=== PATIENT | male | born 1970 | race Caucasian/White ===

== ENCOUNTER 2016-11-05 08:23 | Day surgery (SDC) | payer BC ==
[2016-11-04 11:40] LABS: HEMATOCRIT 42.8 % (37.9-51.0); HGB HCT DIFFERENCE 2.2; MEAN CORPUSCULAR HEMOGLOBIN 28.9 pg (27.0-33.4); MEAN CORPUSCULAR VOLUME 83 fl (80-97); RED BLOOD COUNT 5.18 10^6/uL (4.35-5.55); RED CELL DISTRIBUTION WIDTH 15.2 % (11.5-14.0); WHITE BLOOD COUNT 5.8 10^3/uL (4.0-10.5)
--- NOTE | 2016-11-04 11:40 | RADIOLOGY REPORT (SQ) ---
EXAM DESCRIPTION: CHEST PA/LATERAL COMPLETED DATE/TIME: 11/04/2016 11:26 am REASON FOR STUDY: PRE-OP COMPARISON: None. NUMBER OF VIEWS: Two view. TECHNIQUE: Frontal and lateral radiographic views of the chest acquired. LIMITATIONS: None. FINDINGS: LUNGS AND PLEURA: Numerous nodular densities bilaterally. Largest approximate 2 cm left lung base. Metastatic disease should be considered. MEDIASTINUM AND HILAR STRUCTURES: No masses or contour abnormalities. HEART AND VASCULATURE: Heart normal size. No evidence for failure. BONY STRUCTURES: No acute findings. HARDWARE: None. OTHER: No other significant finding. IMPRESSION: Multiple nodular densities bilaterally most likely secondary to metastatic disease. Dr. Trevino will be notified. TECHNICAL DOCUMENTATION: JOB ID: [id number] [employer]- All Rights Reserved
[2016-11-04 12:04] LABS: ANION GAP 10 (5-19); BLOOD UREA NITROGEN 14 mg/dL (7-20); CALCIUM 10.2 mg/dL (8.4-10.2); CARBON DIOXIDE 28 mmol/L (22-30); CHLORIDE 105 mmol/L (98-107); CREATININE RESULT 1.09 mg/dL (0.52-1.25); GLUCOSE 97 mg/dL (75-110); POTASSIUM 4.2 mmol/L (3.6-5.0); SODIUM 143.3 mmol/L (137-145)
--- NOTE | 2016-11-04 21:02 | EKG REPORT ---
SEVERITY:- NORMAL ECG - SINUS RHYTHM : Confirmed by: Graeme Marc 04-Nov-2016 21:02:09
[~2016-11-05 08:23] MED LIST: ACETAMINOPHEN 325 MG TABLET PO PRN; CEFAZOLIN 1 GM/D5W RTU 1 GM/50 ML RTUPB IV PRN; LACTATED RINGERS 1000 ML IV PRN; LIDOCAINE 0.5% INJ-PF (5 MG/ML) 50 ML SDV SUBCUT PRN
[2016-11-05] MEDS ORDERED: LIDOCAINE 2%/EPINEPHRINE INJ 20 ML VIAL ONE (09:00)
[2016-11-05] MEDS ORDERED: FENTANYL CITRATE INJ/PF 100 MCG/2 ML AMPUL ONE (09:07)
[2016-11-05] MEDS ORDERED: PROPOFOL INJ 200 MG/20 ML VIAL IV ONE (09:07)
[2016-11-05] MEDS ORDERED: MIDAZOLAM 2 MG/2 ML INJ ONE (09:07)
[2016-11-05] MEDS ORDERED: ONDANSETRON HCL INJ/PF 4 MG/2 ML SDV IV PRN ×2 (11:25→11:42)
[2016-11-05] MEDS ORDERED: DIPHENHYDRAMINE HCL 50 MG/ML VIAL IV PRN (11:25)
[2016-11-05] MEDS ORDERED: FENTANYL CITRATE INJ/PF 100 MCG/2 ML AMPUL IV PRN ×3 (11:25)
--- NOTE | 2016-11-05 11:36 | Operative Report ---
Operative Report DATE OF SURGERY: 11/05/16 PREOPERATIVE DIAGNOSIS: Metastatic undifferentiated pleomorphic sarcoma POSTOPERATIVE DIAGNOSIS: same OPERATION: 1. Ultrasound directed insertion of right internal jugular vein single-lumen subclavian port site. 2. Interpretation of intraoperative fluoroscopy. SURGEON: ILDEFONSO KRISHNAN PROVIDER SCRIBE: SHAHNAZ MULLEN ANESTHESIA: LMAC TISSUE REMOVED OR ALTERED: none COMPLICATIONS: none ESTIMATED BLOOD LOSS: scant INTRAOPERATIVE FINDINGS: see below PROCEDURE: Patient was taken to the preop holding area the main operating room where LMAC anesthesia was induced. The patient's arch were placed supine position. The right neck and chest wall prepped draped sterile fashion. Surgical plan and surgical timeout were conducted. The right internal jugular vein was scanned with a variable frequency linear transducer. Findings were significant for patent, compressible right internal jugular vein. The skin was anesthetized 1% lidocaine plain. Micro needle and wire threaded into the right internal jugular vein using ultrasound guidance. A suitable placement location for the port was chosen in the right subclavian position. Skin was any stopped 1% lidocaine plain. 3 cm incision was made in the skin in the subclavicular position. Subcutaneous pocket large enough to accommodate a single-chamber port was created. This was achieved with electrocautery. The single lumen catheter was then turned to the appropriate length, tunneled between the 2 wounds, attached to the single-chamber port with plastic ring. Under fluoroscopic guidance, the micro wire was switched over to a conventional 0.030 wire the micro-introducer sheath. Now under fluoroscopic guidance, the conventional 9 [place] dilator and introducer were threaded over the wire. Dilator and wire removed, single lumen catheter threaded into the strip away sheath was stripped away sheath removed leaving the catheter in good position with the tip in the right atrium. There is no evidence of ectopy. There was no kinking of the catheter at the neck. The chamber was aspirated and flushed with dilute heparin. Wounds were closed with 3-0 Vicryl benzoin Steri-Strips. Portable upright chest x-ray pending time dictation. WILL Briones assisted with skin retraction and wound closure.
--- NOTE | 2016-11-05 11:41 | PDOC DISCHARGE SUMMARY ---
Discharge Summary (SDC) - Discharge Final Diagnosis: pleomorphic sarcoma Date of Surgery: 11/05/16 Discharge Date: 11/05/16 Condition: Stable Treatment or Instructions: You may shower in 48 hours. Leave paper bandaids (steri strips) intact until follow up appointment in 10-14 days. Do not scrub area. Allow warm water and soap to wash over area, pat dry, cover if needed. Call clinic with any questions or concerns. Call if area becomes red, swollen, tender, bleeding, swelling in your neck, or difficulty breathing. Follow up with Emily Jackson PA-C in 10-14 days at [facility] [phone] Referrals: MARLEEN FLORES DO [Primary Care Provider] - Discharge Diet: As Tolerated Discharge Activity: Activity As Tolerated Report the Following to Your Physician Immediately: Shortness of Breath, Increase in Pain, Fever over 101 Degrees, Unusual Bleeding, Swelling, Drainage- Foul Smelling
[2016-11-05] MEDS ORDERED: ONDANSETRON HCL INJ/PF 4 MG/2 ML SDV ONE (12:05)
[2016-11-05] MEDS ORDERED: LIDOCAINE 2% INJ-PF (20 MG/ML) 10 ML AMPUL ONE (12:05)
--- NOTE | 2016-11-05 12:21 | RADIOLOGY REPORT (SQ) ---
EXAM DESCRIPTION: CHEST SINGLE VIEW COMPLETED DATE/TIME: 11/05/2016 12:08 pm REASON FOR STUDY: port placement COMPARISON: Two-view chest 11/04/2016 EXAM PARAMETERS: NUMBER OF VIEWS: One view. TECHNIQUE: Single frontal radiographic view of the chest acquired. RADIATION DOSE: NA LIMITATIONS: None. FINDINGS: LUNGS AND PLEURA: Multiple lung parenchymal nodules are present for metastatic sarcoma. No acute infiltrates. No pleural effusion. No pneumothorax. MEDIASTINUM AND HILAR STRUCTURES: No masses. Contour normal. HEART AND VASCULAR STRUCTURES: Stable mild cardiomegaly BONES: No acute findings. HARDWARE: Right-sided permanent central line tip in the superior vena cava. OTHER: No other significant finding. IMPRESSION: Right-sided central line tip superior vena cava. No pneumothorax. Pulmonary nodules from metastatic sarcoma. TECHNICAL DOCUMENTATION: JOB ID: [id number]
[2016-11-05 13:48] VITALS: BP 125/78
--- NOTE | 2016-11-05 15:10 | RADIOLOGY REPORT (SQ) ---
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 TECHNIQUE: Intra procedural imaging and fluoro LIMITATIONS: None. PROCEDURE: Intra procedural imaging and fluoro during placement of a right-sided permanent central l ine in the OR. Please see the operative report for further details IMPRESSION: Intra procedural imaging and fluoro COMMENT: Quality ID [id number]: Final reports for procedures using fluoroscopy that document radiation exp osure indices, or exposure time and number of fluorographic images (if radiation exposure indices are not available) TECHNICAL DOCUMENTATION: JOB ID: [id number] [employer]- All Rights Reserved
== END 2016-11-05 13:15 | disposition home or self-care (01) ==
LOC: OROUT 08:23
PROVIDERS: ATTEND Surgery
PROC: 05H533Z Insertion of Infusion Device into Right Subclavian Vein, Percutaneous Approach (ICD-10-PCS; principal; 2016-11-05 10:30)
DX: C40.02 Malignant neoplasm of scapula and long bones of left upper limb (principal); G90.2 Horner's syndrome; D17.9 Benign lipomatous neoplasm, unspecified; I10 Essential (primary) hypertension; Z79.899 Other long term (current) drug therapy; Z79.82 Long term (current) use of aspirin
CPT/HCPCS: 36561; 93005; 36415; 85027; 80048; 71020; 71010; 77001; 93010; C1752; C1788; J2250; J0690; J3010; J3490 ×2; J2405; J2704; J1642; 532

== ENCOUNTER → 2016-11-06 | Outpatient (CLI) | payer BC ==
--- NOTE | 2016-11-06 19:38 | XCELERA REPORT ---
[address] [address] Transthoracic Echocardiogram Report Name: ALLIE ISLAS JR Age: 45 yrs Gender: Male : 1970 Patient Status: Outpatient Patient Location: Study Date: 11/06/2016 10:49 AM Height: 72 in Weight: 325 lb BSA: 2.6 m2 Procedure: A complete two-dimensional transthoracic echocardiogram was performed (2D, M-mode, spectral and color flow Doppler). The study was technically difficult with many images being suboptimal in quality. Reason For Study: ANTINEOPLASTIC CHEMOTHERAPY Ordering Physician: KOLE DICKINSON Performed By: Grecia Harper Interpretation Summary The left ventricular ejection fraction is normal. Doppler measurements suggest impaired left ventricular relaxation, which is associated with grade I/IV or mild diastolic dysfunction The left ventricle is grossly normal size. Wall motion cannot be accurately commented on, but no definite regional wall motion abnormalities noted. The right ventricular systolic function is normal. The right atrium is normal in size The left atrium is mildly dilated. There is a trace amount of mitral regurgitation There is no mitral valve stenosis. No aortic regurgitation is present. There is no aortic valve stenosis The aortic root is not well visualized but is probably normal size. The inferior vena cava was not well visualized There is no pericardial effusion. MMode/2D Measurements & Calculations RVDd: 4.4 cm LVIDd: 5.3 cm FS: 35.5 % Ao root diam: 3.6 cm IVSd: 1.1 cm LVIDs: 3.4 cm EDV(Teich): 138.1 ml LVPWd: 1.1 cm ESV(Teich): 49.0 ml Ao root area: 10.2 cm2 EF(Teich): 64.5 % Doppler Measurements & Calculations MV E max olga: MV dec slope: Ao V2 max: LV V1 max P.4 cm/sec 103.0 cm/sec 2.2 mmHg MV A max olga: 172.1 cm/sec2 Ao max PG: LV V1 max: 51.4 cm/sec MV dec time: 4.2 mmHg 73.8 cm/sec MV E/A: 0.77 0.23 sec PA V2 max: PI end-d olga: 91.0 cm/sec 119.8 cm/sec PA max P.3 mmHg Left Ventricle The left ventricle is grossly normal size. There is borderline concentric left ventricular hypertrophy. The left ventricular ejection fraction is normal. Doppler measurements suggest impaired left ventricular relaxation, which is associated with grade I/IV or mild diastolic dysfunction. Wall motion cannot be accurately commented on, but no definite regional wall motion abnormalities noted. Right Ventricle The right ventricle is grossly normal size. There is normal right ventricular wall thickness. The right ventricular systolic function is normal. Atria The right atrium is normal in size. The left atrium is mildly dilated. Interarterial septum not well visualized and not well dopplered. Cannot comment on ASD/PFO presence. Mitral Valve The mitral valve is grossly normal. There is no mitral valve stenosis. There is a trace amount of mitral regurgitation. Aortic Valve The aortic valve is grossly normal. There is no aortic valve stenosis. No aortic regurgitation is present. Tricuspid Valve The tricuspid valve is not well visualized, but is grossly normal. There is no tricuspid stenosis. There is a trace or physiologic amount of tricuspid regurgitation. Right ventricular systolic pressure is at the upper limits of normal. Pulmonic Valve The pulmonic valve is not well visualized. Great Vessels The aortic root is not well visualized but is probably normal size. The inferior vena cava was not well visualized. Effusions There is no pericardial effusion. : KOLE DICKINSON > Graeme Marc
== END ==
LOC: SP 10:35
PROVIDERS: ATTEND Internal Medicine
DX: Z51.11 Encounter for antineoplastic chemotherapy (principal)
CPT/HCPCS: 93306

== ENCOUNTER 2016-11-19 08:36 | Outpatient (CLI) | payer BC ==
[~2016-11-19 08:36] MED LIST changes: -ACETAMINOPHEN 325 MG TABLET PO PRN; -CEFAZOLIN 1 GM/D5W RTU 1 GM/50 ML RTUPB IV PRN; +DEXAMETHASONE SOD PHOSPHATE 10 MG in NORMAL SALINE 50 ML IV PRN; +DIPHENHYDRAMINE HCL 50 MG in NORMAL SALINE 50 ML IV PRN; -LACTATED RINGERS 1000 ML IV PRN; -LIDOCAINE 0.5% INJ-PF (5 MG/ML) 50 ML SDV SUBCUT PRN; +NORMAL SALINE 250 ML IV PRN; +[UNRECOGNIZED DRUG - MIXTURE] IV PRN
[2016-11-19 09:21] VITALS: BP 138/52
== END 2016-11-19 12:38 | disposition home or self-care (01) ==
LOC: II 08:36 → 4W 08:46 → II 12:38
PROVIDERS: ATTEND Internal Medicine
PROC: 3E0430M Introduction of Antineoplastic, Monoclonal Antibody, into Central Vein, Percutaneous Approach (ICD-10-PCS; principal; 2016-11-19)
PROC: 3E0433Z Introduction of Anti-inflammatory into Central Vein, Percutaneous Approach (ICD-10-PCS; 2016-11-19)
PROC: 3E043GC Introduction of Other Therapeutic Substance into Central Vein, Percutaneous Approach (ICD-10-PCS; 2016-11-19)
DX: Z51.11 Encounter for antineoplastic chemotherapy (principal); C40.02 Malignant neoplasm of scapula and long bones of left upper limb; R91.8 Other nonspecific abnormal finding of lung field; Z92.3 Personal history of irradiation; Z79.899 Other long term (current) drug therapy; Z79.82 Long term (current) use of aspirin; Z98.890 Other specified postprocedural states
CPT/HCPCS: 96413; 96375; J1200; J3490; J7050; J1100; C9485; 96374

== ENCOUNTER 2016-12-03 08:34 | Outpatient (CLI) | payer BC ==
[~2016-12-03 08:34] MED LIST changes: -DEXAMETHASONE SOD PHOSPHATE 10 MG in NORMAL SALINE 50 ML IV PRN; -DIPHENHYDRAMINE HCL 50 MG in NORMAL SALINE 50 ML IV PRN; +DOXORUBICIN HCL IV PRN; +FOSAPREPITANT DIMEGLUMINE 150 MG in NORMAL SALINE 150 ML IV PRN; +NORMAL SALINE IV PRN; +ONDANSETRON HCL/PF 16 MG, DEXAMETHASONE SOD PHOSPHATE 10 MG in NORMAL SALINE 50 ML IV PRN
[2016-12-03 09:16] LABS: HEMATOCRIT 36.1 % (37.9-51.0); HEMOGLOBIN 12.8 g/dL (13.5-17.0); HGB HCT DIFFERENCE 2.3; MEAN CORPUSCULAR HGB CONC 35.5 g/dL (32.0-36.0); MEAN CORPUSCULAR VOLUME 82 fl (80-97); RED BLOOD COUNT 4.42 10^6/uL (4.35-5.55); RED CELL DISTRIBUTION WIDTH 14.5 % (11.5-14.0); WHITE BLOOD COUNT 5.7 10^3/uL (4.0-10.5)
[2016-12-03 09:28] LABS: ALANINE AMINOTRANSFERASE 56 U/L (21-72); ALBUMIN 3.8 g/dL (3.5-5.0); ALKALINE PHOSPHATASE 71 U/L (38-126); ANION GAP 10 (5-19); ASPARTATE AMINO TRANSFERASE 25 U/L (17-59); BILIRUBIN,DIRECT 0.3 mg/dL (0.0-0.4); BILIRUBIN,TOTAL 0.4 mg/dL (0.2-1.3); BLOOD UREA NITROGEN 12 mg/dL (7-20); CALCIUM 9.7 mg/dL (8.4-10.2); CARBON DIOXIDE 26 mmol/L (22-30); CHLORIDE 106 mmol/L (98-107); GLUCOSE 138 mg/dL (75-110); POTASSIUM 3.9 mmol/L (3.6-5.0); SODIUM 141.9 mmol/L (137-145); TOTAL PROTEIN 6.5 g/dL (6.3-8.2)
[2016-12-03 09:39] LABS: BAND NEUTROPHILS % (MANUAL) 3 % (3-5); BASOPHILS % (MANUAL) 0 % (0-2); EOSINOPHILS % (MANUAL) 0 % (0-6); LYMPHOCYTES % (MANUAL) 11 % (13-45); TOTAL CELLS COUNTED 100
[2016-12-03 09:40] LABS: ANISOCYTOSIS SLIGHT; POLYCHROMASIA SLIGHT
[2016-12-03] MEDS ORDERED: DOXORUBICIN HCL IV PRN (09:43)
[2016-12-03] MEDS ORDERED: NORMAL SALINE IV PRN (09:43)
[2016-12-03] MEDS ORDERED: CONTAINER EMPTY IV PRN (09:43)
[2016-12-03 10:35] VITALS: BP 131/56
== END 2016-12-03 12:30 | disposition home or self-care (01) ==
LOC: II 08:34 → 5TH 08:36 → II 12:30
PROVIDERS: ATTEND Internal Medicine
PROC: 3E0430M Introduction of Antineoplastic, Monoclonal Antibody, into Central Vein, Percutaneous Approach (ICD-10-PCS; principal; 2016-12-03)
PROC: 3E04305 Introduction of Other Antineoplastic into Central Vein, Percutaneous Approach (ICD-10-PCS; 2016-12-03)
PROC: 3E043GC Introduction of Other Therapeutic Substance into Central Vein, Percutaneous Approach (ICD-10-PCS; 2016-12-03)
DX: Z51.11 Encounter for antineoplastic chemotherapy (principal); C40.02 Malignant neoplasm of scapula and long bones of left upper limb
CPT/HCPCS: 96413; 96415; 96366; 96360; 96523; 36415; 85025; 80053; J9000; J3490; J2405; J1100; J1453; C9485; 96361; 96375; 96417

== ENCOUNTER 2016-12-10 08:33 | Outpatient (CLI) | payer BC ==
[~2016-12-10 08:33] MED LIST changes: +DEXAMETHASONE SOD PHOSPHATE 10 MG in NORMAL SALINE 50 ML IV PRN; +DIPHENHYDRAMINE HCL 50 MG in NORMAL SALINE 50 ML IV PRN; -DOXORUBICIN HCL IV PRN; -FOSAPREPITANT DIMEGLUMINE 150 MG in NORMAL SALINE 150 ML IV PRN; -NORMAL SALINE IV PRN; -ONDANSETRON HCL/PF 16 MG, DEXAMETHASONE SOD PHOSPHATE 10 MG in NORMAL SALINE 50 ML IV PRN; +[UNRECOGNIZED DRUG - MIXTURE] IV PRN; -[UNRECOGNIZED DRUG - MIXTURE] IV PRN
[2016-12-10 09:09] LABS: ABSOLUTE BASOPHILS # (AUTO) 0.1 10^3/uL (0.0-0.2); ABSOLUTE LYMPHOCYTES (AUTO) 0.5 10^3/uL (0.5-4.7); ABSOLUTE NEUT (AUTO) 3.6 10^3/uL (1.7-8.2); BASOPHILS % (AUTO) 1.3 % (0-2); EOSINOPHILS % (AUTO) 0.4 % (0-6); HEMATOCRIT 34.4 % (37.9-51.0); HEMOGLOBIN 12.2 g/dL (13.5-17.0); HGB HCT DIFFERENCE 2.2; LYMPHOCYTES % (AUTO) 12.6 % (13-45); MEAN CORPUSCULAR HEMOGLOBIN 28.8 pg (27.0-33.4); MEAN CORPUSCULAR HGB CONC 35.6 g/dL (32.0-36.0); MEAN CORPUSCULAR VOLUME 81 fl (80-97); MONOCYTES % (AUTO) 0.9 % (3-13); RED BLOOD COUNT 4.25 10^6/uL (4.35-5.55); RED CELL DISTRIBUTION WIDTH 14.6 % (11.5-14.0); SEGMENTED NEUTROPHILS % (AUTO) 84.8 % (42-78); WHITE BLOOD COUNT 4.3 10^3/uL (4.0-10.5)
[2016-12-10 09:28] LABS: ALANINE AMINOTRANSFERASE 40 U/L (21-72); ALBUMIN 3.9 g/dL (3.5-5.0); ALKALINE PHOSPHATASE 67 U/L (38-126); ANION GAP 12 (5-19); ASPARTATE AMINO TRANSFERASE 19 U/L (17-59); BILIRUBIN,DIRECT 0.3 mg/dL (0.0-0.4); BILIRUBIN,TOTAL 0.9 mg/dL (0.2-1.3); BLOOD UREA NITROGEN 13 mg/dL (7-20); CALCIUM 9.6 mg/dL (8.4-10.2); CARBON DIOXIDE 25 mmol/L (22-30); CHLORIDE 103 mmol/L (98-107); CREATININE RESULT 0.83 mg/dL (0.52-1.25); GLUCOSE 129 mg/dL (75-110); POTASSIUM 3.9 mmol/L (3.6-5.0); SODIUM 139.7 mmol/L (137-145); TOTAL PROTEIN 6.7 g/dL (6.3-8.2)
[2016-12-10 10:17] VITALS: BP 130/84
== END 2016-12-10 11:42 | disposition home or self-care (01) ==
LOC: 5TH 08:33 → II 08:33
PROVIDERS: ATTEND Internal Medicine
PROC: 3E0430M Introduction of Antineoplastic, Monoclonal Antibody, into Central Vein, Percutaneous Approach (ICD-10-PCS; principal; 2016-12-10)
PROC: 3E043GC Introduction of Other Therapeutic Substance into Central Vein, Percutaneous Approach (ICD-10-PCS; 2016-12-10)
PROC: 3E0433Z Introduction of Anti-inflammatory into Central Vein, Percutaneous Approach (ICD-10-PCS; 2016-12-10)
DX: Z51.11 Encounter for antineoplastic chemotherapy (principal); C40.02 Malignant neoplasm of scapula and long bones of left upper limb
CPT/HCPCS: 96413; 96367; 96375; 36415; 85025; 80053; J1200; J3490; J1100; C9485 ×2; 96366; 96523

== ENCOUNTER 2016-12-24 08:42 | Outpatient (CLI) | payer BC ==
[~2016-12-24 08:42] MED LIST changes: +CONTAINER EMPTY IV PRN; -DEXAMETHASONE SOD PHOSPHATE 10 MG in NORMAL SALINE 50 ML IV PRN; -DIPHENHYDRAMINE HCL 50 MG in NORMAL SALINE 50 ML IV PRN; +DOXORUBICIN HCL IV PRN; +FOSAPREPITANT DIMEGLUMINE 150 MG in NORMAL SALINE 150 ML IV PRN; +NORMAL SALINE IV PRN; +ONDANSETRON HCL/PF 16 MG, DEXAMETHASONE SOD PHOSPHATE 10 MG in NORMAL SALINE 50 ML IV PRN; +SODIUM CHLORIDE IV PRN; +[UNRECOGNIZED DRUG - MIXTURE] IV PRN; -[UNRECOGNIZED DRUG - MIXTURE] IV PRN
[2016-12-24 09:42] LABS: HEMATOCRIT 35.3 % (37.9-51.0); HEMOGLOBIN 12.2 g/dL (13.5-17.0); HGB HCT DIFFERENCE 1.3; MEAN CORPUSCULAR HEMOGLOBIN 28.7 pg (27.0-33.4); MEAN CORPUSCULAR HGB CONC 34.5 g/dL (32.0-36.0); MEAN CORPUSCULAR VOLUME 83 fl (80-97); RED BLOOD COUNT 4.24 10^6/uL (4.35-5.55); RED CELL DISTRIBUTION WIDTH 17.4 % (11.5-14.0); WHITE BLOOD COUNT 4.3 10^3/uL (4.0-10.5)
[2016-12-24 09:56] LABS: ALANINE AMINOTRANSFERASE 72 U/L (21-72); ALBUMIN 4.4 g/dL (3.5-5.0); ALKALINE PHOSPHATASE 66 U/L (38-126); ANION GAP 12 (5-19); ASPARTATE AMINO TRANSFERASE 31 U/L (17-59); BILIRUBIN,DIRECT 0.4 mg/dL (0.0-0.4); BILIRUBIN,TOTAL 0.8 mg/dL (0.2-1.3); BLOOD UREA NITROGEN 15 mg/dL (7-20); CALCIUM 10.4 mg/dL (8.4-10.2); CARBON DIOXIDE 25 mmol/L (22-30); CHLORIDE 105 mmol/L (98-107); CREATININE RESULT 0.97 mg/dL (0.52-1.25); GLUCOSE 121 mg/dL (75-110); POTASSIUM 4.2 mmol/L (3.6-5.0); SODIUM 142.2 mmol/L (137-145); TOTAL PROTEIN 7.3 g/dL (6.3-8.2)
[2016-12-24 10:13] VITALS: BP 125/79
[2016-12-24 10:45] LABS: BASOPHILS % (MANUAL) 0 % (0-2); EOSINOPHILS % (MANUAL) 0 % (0-6); LYMPHOCYTES % (MANUAL) 29 % (13-45); TOTAL CELLS COUNTED 100
[2016-12-24 10:48] LABS: ANISOCYTOSIS 1+; POLYCHROMASIA SLIGHT; TOXIC GRANULATION 1+
[2016-12-24] MEDS ORDERED: DIPHENHYDRAMINE HCL 50 MG/ML VIAL IV ONE (12:30)
== END 2016-12-24 14:47 | disposition home or self-care (01) ==
LOC: II 08:42 → 5TH 08:43 → II 14:47
PROVIDERS: ATTEND Internal Medicine
PROC: 3E0430M Introduction of Antineoplastic, Monoclonal Antibody, into Central Vein, Percutaneous Approach (ICD-10-PCS; principal; 2016-12-24)
PROC: 3E04305 Introduction of Other Antineoplastic into Central Vein, Percutaneous Approach (ICD-10-PCS; 2016-12-24)
PROC: 3E043GC Introduction of Other Therapeutic Substance into Central Vein, Percutaneous Approach (ICD-10-PCS; 2016-12-24)
DX: Z51.11 Encounter for antineoplastic chemotherapy (principal); C40.02 Malignant neoplasm of scapula and long bones of left upper limb
CPT/HCPCS: 36415; 85025; 80053; 96413; 96415; 96367; 96375; J1200; J9000; J3490 ×2; J2405; J1100; J1453; C9485; 96417

== ENCOUNTER 2016-12-31 08:32 | Outpatient (CLI) | payer BC ==
[~2016-12-31 08:32] MED LIST changes: -CONTAINER EMPTY IV PRN; +DEXAMETHASONE SOD PHOSPHATE 10 MG in NORMAL SALINE 50 ML IV PRN; +DIPHENHYDRAMINE HCL 50 MG/ML VIAL IV PRN; -DOXORUBICIN HCL IV PRN; -FOSAPREPITANT DIMEGLUMINE 150 MG in NORMAL SALINE 150 ML IV PRN; -NORMAL SALINE IV PRN; -ONDANSETRON HCL/PF 16 MG, DEXAMETHASONE SOD PHOSPHATE 10 MG in NORMAL SALINE 50 ML IV PRN; -SODIUM CHLORIDE IV PRN
[2016-12-31 09:17] LABS: ABSOLUTE LYMPHOCYTES (AUTO) 0.5 10^3/uL (0.5-4.7); ABSOLUTE NEUT (AUTO) 3.6 10^3/uL (1.7-8.2); BASOPHILS % (AUTO) 1.2 % (0-2); EOSINOPHILS % (AUTO) 0.6 % (0-6); HEMATOCRIT 31.5 % (37.9-51.0); HEMOGLOBIN 11.4 g/dL (13.5-17.0); HGB HCT DIFFERENCE 2.7; LYMPHOCYTES % (AUTO) 11.2 % (13-45); MEAN CORPUSCULAR HEMOGLOBIN 29.5 pg (27.0-33.4); MEAN CORPUSCULAR HGB CONC 36.1 g/dL (32.0-36.0); MEAN CORPUSCULAR VOLUME 82 fl (80-97); MONOCYTES % (AUTO) 0.7 % (3-13); RED BLOOD COUNT 3.86 10^6/uL (4.35-5.55); RED CELL DISTRIBUTION WIDTH 16.3 % (11.5-14.0); SEGMENTED NEUTROPHILS % (AUTO) 86.3 % (42-78); WHITE BLOOD COUNT 4.2 10^3/uL (4.0-10.5)
[2016-12-31 09:57] VITALS: BP 136/82
== END 2016-12-31 12:17 | disposition home or self-care (01) ==
LOC: II 08:32 → 5TH 08:54 → II 12:17
PROVIDERS: ATTEND Internal Medicine
PROC: 3E0430M Introduction of Antineoplastic, Monoclonal Antibody, into Central Vein, Percutaneous Approach (ICD-10-PCS; principal; 2016-12-31)
PROC: 3E0433Z Introduction of Anti-inflammatory into Central Vein, Percutaneous Approach (ICD-10-PCS; 2016-12-31)
PROC: 3E043GC Introduction of Other Therapeutic Substance into Central Vein, Percutaneous Approach (ICD-10-PCS; 2016-12-31)
DX: Z51.11 Encounter for antineoplastic chemotherapy (principal); C40.02 Malignant neoplasm of scapula and long bones of left upper limb
CPT/HCPCS: 36415; 85025; 96413; 96365; 96374; 96360; 96523; J1200; J3490; J1100; C9485; 96361; 96375

== ENCOUNTER 2017-02-18 13:26 | Outpatient (CLI) | payer BC ==
[2017-02-18 14:16] VITALS: BP 131/93
== END 2017-02-18 14:57 | disposition home or self-care (01) ==
LOC: II 13:26 → 5TH 13:33 → II 14:57
PROVIDERS: ATTEND Internal Medicine
PROC: 3C1ZX8Z Irrigation of Indwelling Device using Irrigating Substance, External Approach (ICD-10-PCS; principal; 2017-02-18)
DX: Z76.89 Persons encountering health services in other specified circumstances (principal)
CPT/HCPCS: 96360; 96365; 96523

== ENCOUNTER 2017-03-10 13:35 | Outpatient (CLI) | payer BC ==
[2017-03-10 14:11] VITALS: BP 130/76
[2017-03-10] MEDS ORDERED: NORMAL SALINE 1000 ML 1,000 ML IV PRN (14:15)
== END 2017-03-10 15:00 | disposition home or self-care (01) ==
LOC: II 13:35 → 5TH 13:37 → II 15:00
PROVIDERS: ATTEND Internal Medicine
PROC: 3E0437Z Introduction of Electrolytic and Water Balance Substance into Central Vein, Percutaneous Approach (ICD-10-PCS; principal; 2017-03-10)
DX: E86.0 Dehydration (principal)
CPT/HCPCS: 96360; 96375

== ENCOUNTER 2017-04-08 10:40 | Outpatient (CLI) | payer BC ==
[~2017-04-08 10:40] MED LIST changes: -DIPHENHYDRAMINE HCL 50 MG/ML VIAL IV PRN; +GEMCITABINE HCL IV PRN; +NORMAL SALINE IV PRN; -[UNRECOGNIZED DRUG - MIXTURE] IV PRN
[2017-04-08 12:04] VITALS: BP 132/56
== END 2017-04-08 13:31 | disposition home or self-care (01) ==
LOC: II 10:40 → 5TH 10:43 → II 13:31
PROVIDERS: ATTEND Internal Medicine
PROC: 3E04305 Introduction of Other Antineoplastic into Central Vein, Percutaneous Approach (ICD-10-PCS; principal; 2017-04-08)
PROC: 3E0433Z Introduction of Anti-inflammatory into Central Vein, Percutaneous Approach (ICD-10-PCS; 2017-04-08)
DX: Z51.11 Encounter for antineoplastic chemotherapy (principal); C40.02 Malignant neoplasm of scapula and long bones of left upper limb
CPT/HCPCS: 96413; 96367; J7050; J9201 ×2; J1100

== ENCOUNTER 2017-04-15 07:50 | Outpatient (CLI) | payer BC ==
[~2017-04-15 07:50] MED LIST changes: +DEXAMETHASONE 4 MG TABLET PO PRN; -DEXAMETHASONE SOD PHOSPHATE 10 MG in NORMAL SALINE 50 ML IV PRN; +DIPHENHYDRAMINE HCL 50 MG/ML VIAL IV PRN; +DOCETAXEL IV PRN; +FAMOTIDINE/PF 20 MG in NORMAL SALINE 50 ML IV PRN; +PALONOSETRON 0.25 MG/5 ML SDV IV PRN
[2017-04-15 08:16] LABS: HEMATOCRIT 35.6 % (37.9-51.0); HEMOGLOBIN 12.1 g/dL (13.5-17.0); MEAN CORPUSCULAR HEMOGLOBIN 29.9 pg (27.0-33.4); MEAN CORPUSCULAR VOLUME 88 fl (80-97); PLATELET COUNT 182 10^3/uL (150-450); RED BLOOD COUNT 4.05 10^6/uL (4.35-5.55); RED CELL DISTRIBUTION WIDTH 19.4 % (11.5-14.0); WHITE BLOOD COUNT 7.2 10^3/uL (4.0-10.5)
[2017-04-15 08:35] LABS: ABSOLUTE LYMPHOCYTES# (MANUAL) 0.9 10^3/uL (0.5-4.7); ABSOLUTE MONOCYTES # (MANUAL) 0.8 10^3/uL (0.1-1.4); ABSOLUTE NEUTROPHILS# (MANUAL) 5.5 10^3/uL (1.7-8.2); BASOPHILS % (MANUAL) 0 % (0-2); EOSINOPHILS % (MANUAL) 0 % (0-6); LYMPHOCYTES % (MANUAL) 11 % (13-45); MONOCYTES % (MANUAL) 11 % (3-13); NUCLEATED RED BLOOD CELLS 1 /100 WBC (0); SEGMENTED NEUTROPHILS % (MAN) 77 % (42-78); TOTAL CELLS COUNTED 100
[2017-04-15 08:37] LABS: ANISOCYTOSIS 2+; PLATELET COMMENT ADEQUATE; POLYCHROMASIA SLIGHT; TOXIC GRANULATION 1+
[2017-04-15 08:43] VITALS: BP 134/92
== END 2017-04-15 11:47 | disposition home or self-care (01) ==
LOC: II 07:50 → 5TH 07:51 → II 11:47
PROVIDERS: ATTEND Internal Medicine
PROC: 3E04305 Introduction of Other Antineoplastic into Central Vein, Percutaneous Approach (ICD-10-PCS; principal; 2017-04-15)
PROC: 3E043GC Introduction of Other Therapeutic Substance into Central Vein, Percutaneous Approach (ICD-10-PCS; 2017-04-15)
DX: Z51.11 Encounter for antineoplastic chemotherapy (principal); C40.02 Malignant neoplasm of scapula and long bones of left upper limb
CPT/HCPCS: 36415; 85025; 96413; 96415; 96375; J1200; J7050; J9201 ×2; S0028; J2469; J9171; 96417

== ENCOUNTER → 2017-04-22 | Outpatient (CLI) | payer BC ==
[2017-04-22 17:16] LABS: A TYPE INFLUENZA AG NEGATIVE (NEGATIVE); B INFLUENZA AG NEGATIVE (NEGATIVE)
== END ==
LOC: OD 16:38
PROVIDERS: ATTEND Internal Medicine
DX: J11.1 Influenza due to unidentified influenza virus with other respiratory manifestations (principal)
CPT/HCPCS: 87804

== ENCOUNTER 2017-05-11 09:06 | Outpatient (CLI) | payer BC ==
[~2017-05-11 09:06] MED LIST changes: -DEXAMETHASONE 4 MG TABLET PO PRN; +DEXAMETHASONE SOD PHOSPHATE 10 MG in NORMAL SALINE 50 ML IV PRN; -DIPHENHYDRAMINE HCL 50 MG/ML VIAL IV PRN; -DOCETAXEL IV PRN; -FAMOTIDINE/PF 20 MG in NORMAL SALINE 50 ML IV PRN; -PALONOSETRON 0.25 MG/5 ML SDV IV PRN
[2017-05-11] MEDS ORDERED: NORMAL SALINE 1000 ML 1,000 ML IV PRN (09:43)
[2017-05-11 11:08] VITALS: BP 126/84
== END 2017-05-11 11:00 | disposition home or self-care (01) ==
LOC: II 09:06 → 2S 09:15 → II 11:00
PROVIDERS: ATTEND Internal Medicine
PROC: 3E0337Z Introduction of Electrolytic and Water Balance Substance into Peripheral Vein, Percutaneous Approach (ICD-10-PCS; principal; 2017-05-11)
DX: E86.0 Dehydration (principal); C40.02 Malignant neoplasm of scapula and long bones of left upper limb
CPT/HCPCS: 96360; J1100; J7030; J7050; J9201

== ENCOUNTER 2017-06-01 14:29 | Outpatient (CLI) | payer BC ==
[2017-06-01] MEDS ORDERED: NORMAL SALINE 1000 ML 1,000 ML IV PRN (15:06)
[2017-06-01 17:14] VITALS: BP 105/66
== END 2017-06-01 17:10 | disposition home or self-care (01) ==
LOC: II 14:29 → 2S 14:35 → II 17:10
PROVIDERS: ATTEND Internal Medicine
PROC: 3E0437Z Introduction of Electrolytic and Water Balance Substance into Central Vein, Percutaneous Approach (ICD-10-PCS; principal; 2017-06-01)
DX: E86.0 Dehydration (principal)
CPT/HCPCS: 96360

== ENCOUNTER 2017-06-03 13:02 | Outpatient (CLI) | payer BC ==
[2017-06-03] MEDS ORDERED: NORMAL SALINE 1000 ML 1,000 ML IV PRN (13:04)
[2017-06-03 14:01] VITALS: BP 128/74
== END 2017-06-03 14:54 | disposition home or self-care (01) ==
LOC: II 13:02 → 5TH 13:05 → II 14:54
PROVIDERS: ATTEND Internal Medicine
PROC: 3E0437Z Introduction of Electrolytic and Water Balance Substance into Central Vein, Percutaneous Approach (ICD-10-PCS; principal; 2017-06-03)
DX: E86.0 Dehydration (principal); C40.02 Malignant neoplasm of scapula and long bones of left upper limb
CPT/HCPCS: 96360

== ENCOUNTER → 2017-07-07 | Outpatient (CLI) | payer BC ==
--- NOTE | 2017-07-07 16:07 | RADIOLOGY REPORT (SQ) ---
EXAM DESCRIPTION: CT CHEST WITH COMPLETED DATE/TIME: 07/07/2017 3:05 pm REASON FOR STUDY: MAL NEOPLASM OF SCAPULA AND LONG BONES OF LEFT UPPER LIMB C40.02 MALIG NEOPLASM O F SCAPULA AND LONG BONES OF LEFT UPPE COMPARISON: Chest films 11/05/2016, 11/04/2016 TECHNIQUE: CT scan of the chest performed using helical scanning technique with dynamic intravenous contrast injection. Images reviewed with lung, soft tissue and bone windows. Reconstructed coronal and sagittal MPR images reviewed. All images stored on PACS. All CT scanners at this facility use dose modulation, iterative reconstruction, and/or weight based d osing when appropriate to reduce radiation dose to as low as reasonably achievable (ALARA). [facility]: Dose Right [facility]: CareDose [facility]: Dose Right [facility]: Teradose 4D [facility]: InteliWISE [place] CONTRAST TYPE AND DOSE: contrast/concentration: Isovue 370.00 mg/ml; Total Contrast Delivered: 80.0 ml; Total Saline Delivered: 55.0 ml RENAL FUNCTION: Creatinine 0.9 RADIATION DOSE: CT Rad equipment meets quality standard of care and radiation dose reduction techniq ues were employed. CTDIvol: 19.4 mGy. DLP: 765 mGy-cm. . LIMITATIONS: Truncated field of view, left axilla incompletely included in the field of view FINDINGS: LUNGS AND PLEURA: There are multiple lung parenchymal metastatic nodules. The largest is in the left lower lobe just above the left hemidiaphragm, 5.6 x 4.2 cm in size. The next largest is in the right upper lobe, 2 x 1.6 cm on axial image 22. These appear larger than on plain films from October 2016. No pleural effusions. No acute infiltrates. No pneumothorax. HILAR AND MEDIASTINAL STRUCTURES: Mediastinal lymph nodes are present as follows: 10 mm diameter pretracheal lymph node image 15 1.8 x 1.1 cm diameter precarinal lymph node image 21 2.3 x 1.2 cm sub- carinal lymph node image 27 HEART AND VASCULAR STRUCTURES: No aneurysm or dissection. No central pulmonary emboli. No pericardi al effusion. HARDWARE: None in the chest. UPPER ABDOMEN: Fatty liver Limited exam. THYROID AND OTHER SOFT TISSUES: Over the left posterior shoulder periscapular region, there is a soft tissue wound with gauze packing best shown on axial image 43 BONES: No significant finding. OTHER: No other significant finding. IMPRESSION: Lung metastatic nodules, appear larger in size than on prior plain films from October TECHNICAL DOCUMENTATION: JOB ID: [id number] Quality ID # [id number]: Final reports with documentation of one or more dose reduction techniques (e.g., Au tomated exposure control, adjustment of the mA and/or kV according to patient size, use of iterative reconstruction technique) 2010 [employer]- All Rights Reserved Reading location - IP/workstation name: [email or web address] [id number]
== END ==
LOC: RAD 14:29
PROVIDERS: ATTEND Internal Medicine
DX: C40.02 Malignant neoplasm of scapula and long bones of left upper limb (principal); C78.02 Secondary malignant neoplasm of left lung
CPT/HCPCS: 71260

== ENCOUNTER → 2017-08-13 | Outpatient (CLI) | payer BC ==
--- NOTE | 2017-08-13 10:08 | RADIOLOGY REPORT (SQ) ---
EXAM DESCRIPTION: CT CHEST WITH; CT ABD/PELVIS WITH IV ORAL COMPLETED DATE/TIME: 08/13/2017 9:11 am REASON FOR STUDY: MALIGNANT NEOPLASM OF SCAPULA AND LONG BONES OF LEFT UPPER LIMB (C40.02) C40.02 M ALIG NEOPLASM OF SCAPULA AND LONG BONES OF LEFT UPPE COMPARISON: Chest films 11/05/2016, 11/04/2016 CT chest 07/07/2016 CONTRAST TYPE AND DOSE: contrast/concentration: Isovue 370.00 mg/ml; Total Contrast Delivered: 100.0 ml; Total Saline Delivered: 72.0 ml RENAL FUNCTION: Creatinine 0.7 TECHNIQUE: CT scan of the chest performed using helical scanning technique with dynamic intravenous contrast injection. Images reviewed with lung, soft tissue and bone windows. Reconstructed coronal a nd sagittal MPR images reviewed. All images stored on PACS. CT scan of the abdomen and pelvis performed with intravenous and with oral contrastusing helical scan vicente technique with dynamic intravenous contrast injection. Images reviewed with lung, soft tissue a nd bone windows. Reconstructed coronal and sagittal MPR images reviewed. Delayed images for evaluat ion of the urinary system also acquired and evaluated. All images stored on PACS. All CT scanners at this facility use dose modulation, iterative reconstruction, and/or weight based d osing when appropriate to reduce radiation dose to as low as reasonably achievable (ALARA). [facility]: Dose Right [facility]: CareDose [facility]: Dose Right [facility]: Teradose 4D [facility]: [employer] RADIATION DOSE: CT Rad equipment meets quality standard of care and radiation dose reduction techniq ues were employed. CTDIvol: 26.7 - 29.7 mGy. DLP: 4869 mGy-cm. . LIMITATIONS: None. FINDINGS: CHEST: LUNGS AND PLEURA: Multiple lung parenchymal masses are present, larger than on prior scan 07/07/2017. Index lesions are as follows: 9 x 8 cm left lower lobe (was 5.6 x 4.2 cm on 07/07/2017). 2.5 x 2.4 cm right upper lobe (was 2 x 1.6 cm on 07/07/2017). No pleural effusions. No acute infiltrates. No pneumothorax. HILAR AND MEDIASTINAL STRUCTURES: Enlarged mediastinal lymph nodes are present as follows: 1.8 x 1.2 cm pretracheal lymph node image 17 (was 10 mm on 07/07/2017). 2.5 x 1.6 cm precarinal lymph node image 24 (was 1.8 x 1 cm on 07/07/2017). 3 x 1.8 cm sub- carinal lymph node image 30 (was 2.3 x 1.2 cm on 07/07/2017). HEART AND VASCULAR STRUCTURES: No aneurysm or dissection. No central pulmonary emboli. No pericardi al effusion. HARDWARE: Right jugular central line tip superior vena cava THYROID AND OTHER SOFT TISSUES: Postoperative and postradiation therapy change with a persistent woun d over the left posterior shoulder soft tissues 4 cm in diameter. BONES: No significant finding. OTHER: In the posterior mediastinum, between the esophagus and aorta, a 4 x 3 cm soft tissue mass is present on axial image 17. ABDOMEN AND PELVIS: LIVER: Normal size. No masses. No dilated ducts. SPLEEN: Normal size. No focal lesions. PANCREAS: No masses. No significant calcifications. No adjacent inflammation or peripancreatic fluid collections. Pancreatic duct not dilated. GALLBLADDER: No identified stones by CT criteria. No inflammatory changes to suggest cholecystitis. ADRENAL GLANDS: No significant masses or asymmetry. RIGHT KIDNEY AND URETER: No solid masses. No significant calcification. No hydronephrosis or hydroure ter. LEFT KIDNEY AND URETER: No solid masses. No significant calcification. No hydronephrosis or hydrouret er. AORTA AND VESSELS: No aneurysm. No dissection. Renal arteries, SMA, celiac without stenosis. RETROPERITONEUM: No retroperitoneal adenopathy, hemorrhage or masses. BOWEL AND PERITONEAL CAVITY: No masses or inflammatory changes. No free fluid or peritoneal masses. APPENDIX: Normal. ABDOMINAL WALL: No masses. No hernias. PELVIS: No mass or free fluid. Normal bladder. BONES: No significant or acute findings. OTHER: No other significant finding. IMPRESSION: Progression of disease in the chest, with increased size of lung metastatic lesions and increase in size of mediastinal lymph nodes. No CT evidence of metastatic disease to the abdomen or pelvis TECHNICAL DOCUMENTATION: JOB ID: [id number] Quality ID # [id number]: Final reports with documentation of one or more dose reduction techniques (e.g., Au tomated exposure control, adjustment of the mA and/or kV according to patient size, use of iterative reconstruction technique) 2010 [employer]- All Rights Reserved Reading location - IP/workstation name: [facility]
== END ==
LOC: RAD 08:11
PROVIDERS: ATTEND Internal Medicine
DX: C40.02 Malignant neoplasm of scapula and long bones of left upper limb (principal)
CPT/HCPCS: 71260; 74177

== ENCOUNTER → 2017-10-19 | Outpatient (CLI) | payer BC ==
--- NOTE | 2017-10-19 11:55 | RADIOLOGY REPORT (SQ) ---
EXAM DESCRIPTION: CT CHEST WITH; CT ABD/PELVIS WITH IV ORAL COMPLETED DATE/TIME: 10/19/2017 10:30 am REASON FOR STUDY: MALIG NEOPLASM OF SCAPULA AND LONG BONES OF LEFT UPPER LIMB C40.02 MALIG NEOPLASM OF SCAPULA AND LONG BONES OF LEFT UPPE COMPARISON: CT chest abdomen pelvis 08/13/2017 CT chest 07/07/2017 CONTRAST TYPE AND DOSE: contrast/concentration: Isovue 370.00 mg/ml; Total Contrast Delivered: 100.0 ml; Total Saline Delivered: 72.0 ml RENAL FUNCTION: Creatinine 0.9 TECHNIQUE: CT scan of the chest performed using helical scanning technique with dynamic intravenous contrast injection. Images reviewed with lung, soft tissue and bone windows. Reconstructed coronal a nd sagittal MPR images reviewed. All images stored on PACS. CT scan of the abdomen and pelvis performed with intravenous and with oral contrastusing helical scan vicente technique with dynamic intravenous contrast injection. Images reviewed with lung, soft tissue a nd bone windows. Reconstructed coronal and sagittal MPR images reviewed. Delayed images for evaluat ion of the urinary system also acquired and evaluated. All images stored on PACS. All CT scanners at this facility use dose modulation, iterative reconstruction, and/or weight based d osing when appropriate to reduce radiation dose to as low as reasonably achievable (ALARA). [facility]: Dose Right [facility]: CareDose [facility]: Dose Right [facility]: Teradose 4D [facility]: [employer] RADIATION DOSE: CT Rad equipment meets quality standard of care and radiation dose reduction techniq ues were employed. CTDIvol: 19.1 - 22.6 mGy. DLP: 4686 mGy-cm. . LIMITATIONS: None. FINDINGS: CHEST: LUNGS AND PLEURA: Increasing size of multiple pulmonary masses. Index lesions are as follows: Right apical lung mass 5 x 4 cm (was 2.5 x 2.4 cm on 08/13/2017). Medial right lung base nodule 7 x 6 cm in size (was 4 x 3 cm on 08/13/2017) Left lower lobe 10 x 9 cm mass (was 9 x 8 cm on 08/13/2017). There is now a trace right pleural effusion, new compared to previous studies. No left effusion. No pneumothorax. HILAR AND MEDIASTINAL STRUCTURES: Decrease in size of lymph nodes compared to 08/13/2017 as follows: Pretracheal 1.3 x 1 cm lymph node image 15 (was 1.8 x 1.2 cm 08/13/2017) Precarinal 1.8 x 1.1 cm lymph node image 22 (was 2.5 x 1.6 cm 08/13/2017). Sub- carinal 2 x 1 cm lymph node image 26 (was 3 x 1.8 cm on 08/13/2017). HEART AND VASCULAR STRUCTURES: No aneurysm or dissection. No central pulmonary emboli. No pericardi al effusion. HARDWARE: Right permanent central line tip superior vena cava THYROID AND OTHER SOFT TISSUES: 5 cm soft tissue defect over the left posterior upper chest at the le olga of the left scapular wing. This is unchanged. BONES: No significant finding. OTHER: No other significant finding. ABDOMEN AND PELVIS: LIVER: Diffuse fatty infiltration. No masses. Normal vascular enhancement. No biliary ductal dilat ation SPLEEN: Normal size. No focal lesions. PANCREAS: No masses. No significant calcifications. No adjacent inflammation or peripancreatic fluid collections. Pancreatic duct not dilated. GALLBLADDER: No identified stones by CT criteria. No inflammatory changes to suggest cholecystitis. ADRENAL GLANDS: No significant masses or asymmetry. RIGHT KIDNEY AND URETER: No solid masses. No significant calcification. No hydronephrosis or hydroure ter. LEFT KIDNEY AND URETER: No solid masses. No significant calcification. No hydronephrosis or hydrouret er. AORTA AND VESSELS: No aneurysm. No dissection. Renal arteries, SMA, celiac without stenosis. RETROPERITONEUM: No retroperitoneal adenopathy, hemorrhage or masses. BOWEL AND PERITONEAL CAVITY: No masses or inflammatory changes. No free fluid or peritoneal masses. APPENDIX: Normal. ABDOMINAL WALL: Small fatty bilateral inguinal hernias PELVIS: No mass or free fluid. Normal bladder. BONES: Multilevel degenerative disc changes lumbar spine OTHER: No other significant finding. IMPRESSION: Enlargement of lung parenchymal metastatic lesions compared to 08/13/2017. Decrease in size of mediastinal lymph nodes compared to 08/13/2017. No CT evidence of metastatic disease to the abdomen or pelvis TECHNICAL DOCUMENTATION: JOB ID: [id number] Quality ID # [id number]: Final reports with documentation of one or more dose reduction techniques (e.g., Au tomated exposure control, adjustment of the mA and/or kV according to patient size, use of iterative reconstruction technique) 2010 [employer]- All Rights Reserved Reading location - IP/workstation name: [facility]
== END ==
LOC: RAD 09:39
PROVIDERS: ATTEND Internal Medicine
DX: C40.02 Malignant neoplasm of scapula and long bones of left upper limb (principal)
CPT/HCPCS: 71260; 74177

== ENCOUNTER 2017-11-05 15:45 | Inpatient (IN) | payer BC ==
[~2017-11-05 15:45] MED LIST changes: -DEXAMETHASONE SOD PHOSPHATE 10 MG in NORMAL SALINE 50 ML IV PRN; +EPINEPHRINE INJ 1 MG/10 ML DISP.SYRIN ONE; -GEMCITABINE HCL IV PRN; -NORMAL SALINE 250 ML IV PRN; -NORMAL SALINE IV PRN; +SODIUM BICARBONATE 8.4% INJ 50 MEQ/50 ML DISP.SYRIN ONE
--- NOTE | 2017-11-05 16:31 | ER Document Report ---
ED General - General Stated Complaint: DIZZY Time Seen by Provider: 11/05/17 15:54 Mode of Arrival: Medic Information source: Patient, Relative Notes: This is a 46-year-old man brought in by EMS for dizziness, syncope. 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 Boyd. He reports having decreased p.o. intake for the past several days. The patient is accompanied by his who states he has not been able to ambulate because of generalized weakness for the past week. TRAVEL OUTSIDE OF THE [place] IN LAST 30 DAYS: No - HPI Onset: Last week Onset/Duration: Gradual Quality of pain: No pain, Dull Severity: None Pain Level: Denies Associated symptoms: Weakness. denies: Chest pain, Nonproductive cough, Productive cough, Fever, Shortness of breath Exacerbated by: Movement Relieved by: Remaining still Similar symptoms previously: Yes Recently seen / treated by doctor: Yes - Related Data Allergies/Adverse Reactions: No Known Allergies Allergy (Unverified 11/05/16 11:39) Past Medical History - General Information source: Patient - Social History Smoking Status: Never Smoker Cigarette use (# per day): No Chew tobacco use (# tins/day): No Frequency of alcohol use: None Drug Abuse: None Lives with: Family Family History: None Patient has suicidal ideation: No Patient has homicidal ideation: No - Past Medical History Cardiac Medical History: Reports: Hx Hypertension Denies: Hx Coronary Artery Disease, Hx Heart Attack Pulmonary Medical History: Denies: Hx Asthma, Hx Bronchitis, Hx COPD, Hx Pneumonia Neurological Medical History: Denies: Hx Cerebrovascular Accident, Hx Seizures Musculoskeletal Medical History: Denies Hx Arthritis Past Surgical History: Reports: Other - Sarcoma removal from back, port placement right chest wall - Immunizations Hx Diphtheria, Pertussis, Tetanus Vaccination: Yes Review of Systems - Review of Systems Constitutional: denies: Chills, Fever EENT: No symptoms reported Cardiovascular: See HPI, Dizziness, Lightheaded. denies: Chest pain Respiratory: denies: Cough, Hemoptysis, Wheezing Gastrointestinal: denies: Abdomen distended, Abdominal pain, Vomiting Genitourinary: No symptoms reported Male Genitourinary: No symptoms reported Musculoskeletal: No symptoms reported Skin: No symptoms reported Hematologic/Lymphatic: No symptoms reported Neurological/Psychological: No symptoms reported Physical Exam - Vital signs Vitals: Temp Pulse Resp BP Pulse Ox 98.6 F 140 H 26 H 146/56 H 100 11/05/17 15:45 11/05/17 15:45 11/05/17 15:45 11/05/17 15:45 11/05/17 15:45 Notes: Physical exam: GENERAL: 46-year-old man, ill-appearing, alert and oriented 3, tachycardic (140 ) and orthostatic. Is a very pale complexion. HEAD: Atraumatic, normocephalic. EYES: Pupils equal round and reactive to light, extraocular movements intact, sclera anicteric, conjunctiva are normal. ENT: TMs normal, nares patent, oropharynx clear without exudates. Moist mucous membranes. NECK: Normal range of motion, supple without obvious mass or JVD. LUNGS: Breath sounds clear to auscultation bilaterally and equal. No wheezes rales or rhonchi. HEART: Tachycardia without murmurs, rubs or gallops. ABDOMEN: Soft, normoactive bowel sounds. No tenderness to palpation. No guarding, no rebound. No masses appreciated. EXTREMITIES: Normal range of motion, no pitting or edema. No clubbing or cyanosis. NEUROLOGICAL: Cranial nerves II through XII grossly intact. Normal speech, moving all extremities. PSYCH: Normal mood, normal affect. SKIN: Pale complexion. No lesions. Does have a chronic lesion over his back with a sarcoma was removed. Course - Re-evaluation Re-evalutation: 11/05/17 16:36 In the ER: Patient got 2 L IV bolus normal saline. Fluids have been switched over to lactated Ringer's at 100 cc an hour. Awaiting labs. 11/05/17 18:13 Note: I did discuss case with Dr. Boyd knows the patient well. He is anemic but he has had hemoglobins that were in the 9 range in the office. Given his significant symptoms, we will transfuse with 1 unit of packed red blood cells. That has been written for. As far as his white count: It does appear elevated. He is not had any fever. He has not had any change in respiratory status. But his CT of the chest looks quite bad with multiple masses. Given this, it would be difficult to say if he could potentially have a postobstructive pneumonia, therefore we will start some antibiotics. Cultures have been sent. As far as his tachycardia: Thyroid tests have been sent. It does appear to be volume depletion to some degree. I will place him on telemetry. He does report that his heart rate has been in the 130s in clinic for the past several weeks. I discussed the issue of CODE STATUS with the patient as well as his . He requests not to be on a ventilator so I will make him DO NOT INTUBATE. He does not want his life unnecessarily prolonged, he just does not want us "to give up after 2 minutes". I discussed do not into intubate with him and he is okay with that. - Vital Signs Vital signs: Temp Pulse Resp BP Pulse Ox 98.6 F 135 H 20 136/85 H 98 11/05/17 15:45 11/05/17 18:30 11/05/17 18:30 11/05/17 18:30 11/05/17 18:30 - Laboratory Result Diagrams: 11/05/17 16:20 11/05/17 16:20 Laboratory results interpreted by me: 11/05/17 11/05/17 11/05/17 16:20 16:20 16:20 WBC 16.6 H RBC 3.04 L Hgb 8.5 L Hct 25.7 L RDW 20.7 H Seg Neuts % (Manual) 86 H Lymphocytes % (Manual) 5 L Abs Neuts (Manual) 14.3 H Abs Monocytes (Manual) 1.5 H Sodium 133.8 L Glucose 184 H Lactic Acid 2.7 H Calcium 7.7 L Direct Bilirubin 0.6 H AST 87 H Total Protein 4.5 L Albumin 1.9 L Crossmatch 11/05/17 18:10 WBC RBC Hgb Hct RDW Seg Neuts % (Manual) Lymphocytes % (Manual) Abs Neuts (Manual) Abs Monocytes (Manual) Sodium Glucose Lactic Acid Calcium Direct Bilirubin AST Total Protein Albumin Crossmatch See Detail - Diagnostic Test Radiology reviewed: Image reviewed, Reports reviewed - Multiple masses - EKG Interpretation by Me Rate: Tachycardia - EKG shows sinus tachycardia with a ventricular rate of 141, no acute ST-T wave changes. Discharge - Discharge Clinical Impression: Syncope, Anemia Condition: Serious Disposition: ADMITTED INPATIENT Admitting Provider: Hospitalist - dr Solis Unit Admitted: Telemetry
[2017-11-05] MEDS ORDERED: ONDANSETRON HCL INJ/PF 4 MG/2 ML SDV IV ONE (16:36)
[2017-11-05] MEDS ORDERED: MORPHINE SULFATE 10 MG/ML INJ IV ONE (16:36)
[2017-11-05 16:52] LABS: HEMATOCRIT 25.7 % (37.9-51.0); HEMOGLOBIN 8.5 g/dL (13.5-17.0); MEAN CORPUSCULAR HEMOGLOBIN 27.9 pg (27.0-33.4); MEAN CORPUSCULAR VOLUME 85 fl (80-97); PLATELET COUNT 186 10^3/uL (150-450); RED BLOOD COUNT 3.04 10^6/uL (4.35-5.55); RED CELL DISTRIBUTION WIDTH 20.7 % (11.5-14.0); WHITE BLOOD COUNT 16.6 10^3/uL (4.0-10.5)
--- NOTE | 2017-11-05 17:12 | RADIOLOGY REPORT (SQ) ---
EXAM DESCRIPTION: CHEST SINGLE VIEW COMPLETED DATE/TIME: 11/05/2017 4:48 pm REASON FOR STUDY: syncope COMPARISON: CT 10/19/2017 chest x-ray 06/02/2016 EXAM PARAMETERS: NUMBER OF VIEWS: One view. TECHNIQUE: Single frontal radiographic view of the chest acquired. RADIATION DOSE: NA LIMITATIONS: None. FINDINGS: LUNGS AND PLEURA: There is marked opacification in the left lung. Right pulmonary masses. MEDIASTINUM AND HILAR STRUCTURES: No masses. Contour normal. HEART AND VASCULAR STRUCTURES: Heart size is borderline. No mary pulmonary edema. BONES: No acute findings. HARDWARE: Injection port on the right. OTHER: No other significant finding. IMPRESSION: Right pulmonary masses. Opacification the left lung. Possible large left lung mass. P ossible consolidation. Cannot exclude left pleural effusion. TECHNICAL DOCUMENTATION: JOB ID: [id number] [employer]- All Rights Reserved Reading location - IP/workstation name: [email or web address]
[2017-11-05 17:16] LABS: ABSOLUTE LYMPHOCYTES# (MANUAL) 0.8 10^3/uL (0.5-4.7); ABSOLUTE MONOCYTES # (MANUAL) 1.5 10^3/uL (0.1-1.4); ABSOLUTE NEUTROPHILS# (MANUAL) 14.3 10^3/uL (1.7-8.2); BASOPHILS % (MANUAL) 0 % (0-2); EOSINOPHILS % (MANUAL) 0 % (0-6); LYMPHOCYTES % (MANUAL) 5 % (13-45); MONOCYTES % (MANUAL) 9 % (3-13); SEGMENTED NEUTROPHILS % (MAN) 86 % (42-78); TOTAL CELLS COUNTED 100
[2017-11-05 17:17] LABS: ANISOCYTOSIS 2+; PLATELET COMMENT ADEQUATE; POIKILOCYTOSIS SLIGHT; TOXIC GRANULATION SLIGHT
[2017-11-05 17:29] LABS: ALANINE AMINOTRANSFERASE 44 U/L (21-72); ALBUMIN 1.9 g/dL (3.5-5.0); ALKALINE PHOSPHATASE 113 U/L (38-126); ANION GAP 9 (5-19); ASPARTATE AMINO TRANSFERASE 87 U/L (17-59); BILIRUBIN,DIRECT 0.6 mg/dL (0.0-0.4); BILIRUBIN,TOTAL 0.9 mg/dL (0.2-1.3); BLOOD UREA NITROGEN 17 mg/dL (7-20); CALCIUM 7.7 mg/dL (8.4-10.2); CARBON DIOXIDE 25 mmol/L (22-30); CHLORIDE 100 mmol/L (98-107); GLUCOSE 184 mg/dL (75-110); SODIUM 133.8 mmol/L (137-145); TOTAL PROTEIN 4.5 g/dL (6.3-8.2)
[2017-11-05] MEDS ORDERED: NORMAL SALINE 250 ML IV PRN ×2 (18:07)
[2017-11-05] MEDS ORDERED: CEFEPIME 2 GM/D5W RTU 2 GM/50 ML RTUPB IV ONE (18:09)
[2017-11-05] MEDS ORDERED: IPRATROPIUM/ALBUTEROL 0.5-2.5 MG/3 ML AMPUL NEB PRN (18:15)
[2017-11-05] MEDS ORDERED: ACETAMINOPHEN 325 MG TABLET PO PRN (18:15)
[2017-11-05] MEDS ORDERED: RINGERS SOLUTION,LACTATED 1,000 ML IV ONE (18:17)
[2017-11-05 18:27] LABS: VENOUS BLOOD HCO3 24.7 mmol/L (20-32); VENOUS BLOOD PCO2 40.1 mmHg (35-63); VENOUS BLOOD PH 7.41 (7.30-7.42)
[2017-11-05] MEDS ORDERED: MORPHINE SULFATE 10 MG/ML INJ IV PRN (18:27)
--- NOTE | 2017-11-05 19:19 | PDOC H&P ---
History of Present Illness Admission Date/PCP: KOLE DICKINSON MD Patient complains of: Weakness History of Present Illness: ALLIE ISLAS JR is a 46 year old male who suffers from metastatic sarcoma. Most recently the patient was removed from a clinical trial for a drug that was only known by a number due to his inability to tolerate the drug due to severe mucositis and weakness. Tomorrow will be the last day of a 3 week waiting period before he starts a new chemotherapeutic agent. The patient's states that usually the patient goes to get IV fluids at Dr. Fitch on Thursday, Wednesdays, and Fridays to avoid dehydration. However, yesterday the patient did not go to IV fluids. Today the patient is so weak that he was unable to walk to the car, so his called an ambulance. They brought him to the ED. The patient was found to be dehydrated, tachycardic, and to have a WBC of 16K. There is no clear source of infection, however the patient's tells me that he was prescrived levofloxacin 12 weeks ago for sinusitis which he has never taken. Furthermore the patient's chest is full of masses and possible post- obstructive pneumonia. Dr. Fitch was contacted and he recommended that the patient be admitted to IV antibiotics and IV fluids. 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 Denies: Asthma, Bronchitis, Chronic Obstructive Pulmonary Disease (COPD), Pneumonia EENT Medical History: Reports: Other - Sinusitis - untreated. Neurological Medical History: Denies: Seizures Malignancy History Note: Metastatic sarcoma. Musculoskeltal Medical History: Denies: Arthritis Hematology: Reports: Anemia - HX of borderline, no longer Social History Information Source: Patient, Relative Lives with: Family Smoking Status: Unknown if Ever Smoked Drugs: None - Advance Directive Resuscitation Status: Do Not Intubate Family History Family History: Reviewed & Not Pertinent Parental Family History Reviewed: Yes Children Family History Reviewed: Yes Sibling(s) Family History Reviewed.: Yes Medication/Allergy Home Medications: Aspirin [Ecotrin] 81 mg PO DAILY 03/03/16 Lisinopril/Hydrochlorothiazide [Lisinopril-Hctz 10-12.5 mg Tab] 1 each PO DAILY 03/03/16 Loratadine 10 mg PO DAILY 03/03/16 Fluticasone Propionate [Flonase Nasal Underwood 50 Mcg/Underwood 16 gm] 1 spray NASL Q12 11/04/16 Allergies/Adverse Reactions: No Known Allergies Allergy (Unverified 11/05/16 11:39) Review of Systems Constitutional: PRESENT: anorexia, fatigue, weakness Eyes: ABSENT: visual disturbances Ears: ABSENT: hearing changes Nose, Mouth, and Throat: PRESENT: mouth pain, sore throat. ABSENT: vertigo Cardiovascular: PRESENT: orthropnea, other - tachycardia. ABSENT: dyspnea on exertion, palpitations Respiratory: ABSENT: cough, dyspnea, sputum Gastrointestinal: ABSENT: abdominal pain, constipation, dysphagia, nausea, vomiting Musculoskeletal: PRESENT: muscle weakness Integumentary: PRESENT: wounds - open wound on back. Neurological: PRESENT: weakness - Too weak to stand or walk. Psychiatric: PRESENT: depression. ABSENT: anxiety, homidical ideation, suicidal ideation Endocrine: ABSENT: cold intolerance, heat intolerance, polydipsia Hematologic/Lymphatic: ABSENT: easy bleeding, easy bruising, lymphadenopathy Physical Exam Vital Signs: Temp Pulse Resp BP Pulse Ox 98.6 F 135 H 20 136/85 H 98 11/05/17 15:45 11/05/17 18:30 11/05/17 18:30 11/05/17 18:30 11/05/17 18:30 Intake & Output 11/04/17 11/05/17 11/06/17 06:59 06:59 06:59 Intake Total 700 Balance 700 Weight 109.2 kg General appearance: PRESENT: mild distress Head exam: PRESENT: atraumatic, normocephalic, other - Doe's syndrome. Eye exam: PRESENT: EOMI, PERRLA, other - no scleral injection. ABSENT: scleral icterus Mouth exam: PRESENT: moist, tongue midline Neck exam: ABSENT: JVD, tenderness, thyromegaly, tracheostomy Respiratory exam: PRESENT: rhonchi - throughout, wheezes Cardiovascular exam: PRESENT: RRR. ABSENT: gallop, rubs, systolic murmur GI/Abdominal exam: PRESENT: soft. ABSENT: hernia, mass, organolmegaly, tenderness Rectal exam: PRESENT: deferred Extremities exam: ABSENT: joint swelling, tenderness, +1 edema Musculoskeletal exam: PRESENT: normal inspection. ABSENT: deformity, dislocation, tenderness Neurological exam: PRESENT: alert, awake, oriented to person, oriented to place , oriented to time, oriented to situation, CN II-XII grossly intact. ABSENT: motor sensory deficit Psychiatric exam: PRESENT: appropriate affect, normal mood Skin exam: PRESENT: dry, intact, warm Results Laboratory Results: 11/05/17 16:20 11/05/17 16:20 11/05/17 11/05/17 11/05/17 16:20 16:20 16:20 WBC 16.6 H RBC 3.04 L Hgb 8.5 L Hct 25.7 L MCV 85 MCH 27.9 MCHC 33.0 RDW 20.7 H Plt Count 186 Seg Neutrophils % Not Reportable Lymphocytes % Not Reportable Monocytes % Not Reportable Eosinophils % Not Reportable Basophils % Not Reportable Absolute Neutrophils Not Reportable Absolute Lymphocytes Not Reportable Absolute Monocytes Not Reportable Absolute Eosinophils Not Reportable Absolute Basophils Not Reportable VBG pH 7.41 VBG pCO2 40.1 VBG HCO3 24.7 VBG Base Excess 0 Sodium 133.8 L Potassium 4.0 Chloride 100 Carbon Dioxide 25 Anion Gap 9 BUN 17 Creatinine 1.10 Est GFR ( Amer) > 60 Est GFR (Non-Af Amer) > 60 Glucose 184 H Calcium 7.7 L Magnesium 2.0 Total Bilirubin 0.9 AST 87 H ALT 44 Alkaline Phosphatase 113 Total Protein 4.5 L Albumin 1.9 L Impressions: Chest X-Ray 11/05/17 16:31 IMPRESSION: Right pulmonary masses. Opacification the left lung. Possible large left lung mass. Possible consolidation. Cannot exclude left pleural effusion. Assessment & Plan - Diagnosis (1) Dehydration Is this a current diagnosis for this admission?: Yes (2) Leukocytosis Qualifiers: Leukocytosis type: bandemia Qualified Code(s): D72.825 - Bandemia Is this a current diagnosis for this admission?: Yes (3) Weakness Is this a current diagnosis for this admission?: Yes (4) Unable to walk Is this a current diagnosis for this admission?: Yes (5) Metastatic sarcoma to lung Qualifiers: Laterality: unspecified laterality Qualified Code(s): C78.00 - Secondary malignant neoplasm of unspecified lung; C49.9 - Malignant neoplasm of connective and soft tissue, unspecified; C49.9 - Malignant neoplasm of connective and soft tissue, unspecified; C49.9 - Malignant neoplasm of connective and soft tissue, unspecified; C49.9 - Malignant neoplasm of connective and soft tissue, unspecified Is this a current diagnosis for this admission?: Yes (6) Sinusitis Qualifiers: Chronicity: subacute Is this a current diagnosis for this admission?: Yes - Time Time Spent: Greater than 70 Minutes - Plan Summary Plan Summary: The patient will be admitted to a telemetry bed. He will receive IV fluids, IV cefepime, he will be transfused with [address] Fitch has been consulted. The patient will also have pain control. He is a do not intubate.
[2017-11-05] MEDS ORDERED: ENOXAPARIN SODIUM INJ 40 MG/0.4 ML DISP.SYRIN SUBCUT ONE (20:00)
[2017-11-05 20:48] LABS: APPEARANCE,URINE TURBID; BILIRUBIN,URINE SMALL (NEGATIVE); COLOR,URINE AMBER; GLUCOSE, URINE 50 mg/dL (NEGATIVE); KETONES,URINE NEGATIVE (NEGATIVE); LEUKOCYTE ESTERASE,URINE NEGATIVE (NEGATIVE); NITRITE,URINE NEGATIVE (NEGATIVE); PROTEIN,URINE 100 mg/dL (NEGATIVE); URINE SPECIFIC GRAVITY 1.028
[2017-11-05] MEDS ORDERED: FLUTICASONE NASAL SPRAY 50 MCG/SPRY 120 SPRAY/16 GM NASL SCH (22:00)
[2017-11-06] MEDS ORDERED: DIPHENHYDRAMINE HCL 50 MG/ML VIAL IV ONE ×2 (00:45→01:30)
[2017-11-06 01:26] VITALS: BP 130/75
[2017-11-06] MEDS ORDERED: NORMAL SALINE 1000 ML 1,000 ML IV PRN (01:29)
[2017-11-06] MEDS ORDERED: LORAZEPAM INJ 2 MG/1 ML VIAL IV PRN (02:32)
[2017-11-06 02:35] LABS: HEMOGLOBIN 9.1 g/dL (13.5-17.0); RED BLOOD COUNT 3.23 10^6/uL (4.35-5.55)
[2017-11-06 02:38] LABS: HEMATOCRIT 27.3 % (37.9-51.0); MEAN CORPUSCULAR HEMOGLOBIN 28.1 pg (27.0-33.4); MEAN CORPUSCULAR HGB CONC 33.1 g/dL (32.0-36.0); MEAN CORPUSCULAR VOLUME 85 fl (80-97); PLATELET COUNT 181 10^3/uL (150-450); RED CELL DISTRIBUTION WIDTH 19.6 % (11.5-14.0); WHITE BLOOD COUNT 20.2 10^3/uL (4.0-10.5)
[2017-11-06] MEDS ORDERED: FUROSEMIDE INJ/PF 20 MG/2 ML SDV IV ONE (02:45)
[2017-11-06 02:49] LABS: ANION GAP 8 (5-19); BLOOD UREA NITROGEN 19 mg/dL (7-20); CALCIUM 7.8 mg/dL (8.4-10.2); CARBON DIOXIDE 27 mmol/L (22-30); CHLORIDE 100 mmol/L (98-107); GLUCOSE 128 mg/dL (75-110); PHOSPHORUS 3.7 mg/dL (2.5-4.5); POTASSIUM 4.3 mmol/L (3.6-5.0); SODIUM 134.9 mmol/L (137-145)
[2017-11-06 03:06] LABS: ABSOLUTE LYMPHOCYTES# (MANUAL) 0.6 10^3/uL (0.5-4.7); ABSOLUTE MONOCYTES # (MANUAL) 1.2 10^3/uL (0.1-1.4); ABSOLUTE NEUTROPHILS# (MANUAL) 18.4 10^3/uL (1.7-8.2); ANISOCYTOSIS 2+; BASOPHILS % (MANUAL) 0 % (0-2); EOSINOPHILS % (MANUAL) 0 % (0-6); LYMPHOCYTES % (MANUAL) 3 % (13-45); MONOCYTES % (MANUAL) 6 % (3-13); POLYCHROMASIA SLIGHT; SCHISTOCYTES SLIGHT; SEGMENTED NEUTROPHILS % (MAN) 91 % (42-78); TOTAL CELLS COUNTED 100; TOXIC GRANULATION SLIGHT
[2017-11-06 03:07] LABS: PLATELET COMMENT ADEQUATE; PLATELET LARGE PRESENT
[2017-11-06 04:17] LABS: ALANINE AMINOTRANSFERASE 45 U/L (21-72); ALBUMIN 2.1 g/dL (3.5-5.0); ALKALINE PHOSPHATASE 112 U/L (38-126); ANION GAP 6 (5-19); ASPARTATE AMINO TRANSFERASE 88 U/L (17-59); BILIRUBIN,DIRECT 0.5 mg/dL (0.0-0.4); BILIRUBIN,TOTAL 0.9 mg/dL (0.2-1.3); BLOOD UREA NITROGEN 20 mg/dL (7-20); CALCIUM 7.9 mg/dL (8.4-10.2); CARBON DIOXIDE 28 mmol/L (22-30); CHLORIDE 100 mmol/L (98-107); GLUCOSE 129 mg/dL (75-110); POTASSIUM 4.5 mmol/L (3.6-5.0); SODIUM 133.8 mmol/L (137-145)
[2017-11-06] MEDS ORDERED: METOPROLOL TARTRATE PF/INJ 5 MG/5 ML SDV IV ONE (04:25)
[2017-11-06] MEDS ORDERED: ENOXAPARIN SODIUM INJ 100 MG/1 ML DISP.SYRIN SUBCUT ONE (05:37)
--- NOTE | 2017-11-06 06:06 | RADIOLOGY REPORT (SQ) ---
EXAM DESCRIPTION: CT CHEST ANGIOGRAPHY WITH IV CONTRAST COMPLETED DATE/TME: 11/06/2017 00:00 CLINICAL HISTORY: Shortness of breath COMPARISON: 10/19/2017 TECHNIQUE: CTA of the chest obtained following the uncomplicated intravenous administration of 100 mL Omnipaque 350. 3-D/MIP reformatted images of the chest available for evaluation. DLP: 1281.36 mGycm FINDINGS: Chest: Pulmonary arteries: Contrast bolus is adequate.No filling defects identified in the pulmonary arteries to suggest pulmonary embolus. There is encasement/narrowing of multiple pulmonary arteries predominantly the lower lobes bilaterally by large pulmonary masses. Thyroid:No abnormalities of the visualized thyroid. Great Vessels:Great vessels have normal anatomic configuration. Thoracic Aorta:No abnormalities of the thoracic aorta identified. Heart: No cardiomegaly or coronary artery atherosclerosis. There is a filling defect in the left atrium which may represent tumor invasion given proximity to large left lung mass. Lymph Nodes: Shotty mediastinal lymph nodes are not definitely enlarged. Esophagus:No abnormalities of the esophagus identified. Other:No additional findings. Lungs: Redemonstrated multiple lung masses, the largest in left lower lobe measuring 11.3 x 9.4 cm. Largest mass in the right lung is in the lower lobe measuring 9.4 x 8.1 cm. Interval development of groundglass opacities in the left upper lobe and right lung base and more confluent left basilar consolidation. Pleura: Small bilateral pleural effusions, right greater than left slightly increased from the comparison study. Trachea/Airways: No acute abnormalities of the trachea. Bones:No destructive osseous lesions. Upper Abdomen: No abnormalities of visualized portions of the spleen. Decreased density of the liver. IMPRESSION: 1. No pulmonary embolus identified. 2. Redemonstrated bilateral lung masses representing parenchymal metastatic disease, the largest in the left lower lobe measuring at least 11.3 cm in greatest dimension. 3. Small bilateral pleural effusions, right greater than left. These are slightly increased from the comparison study. 4. Interval development of confluent left basilar consolidation and right lower lung and left upper lung groundglass opacities. These could represent postobstructive pneumonia. 5. Filling defect in the left atrium may represent flow-related artifact or may represent invasion of the left atrium by tumor thrombus related to large adjacent left lung mass. 6. Hepatic steatosis. This exam was performed according to our departmental dose-optimization program, which includes automated exposure control, adjustment of the mA and/or kV according to patient size and/or use of iterative reconstruction technique.
[2017-11-06] MEDS ORDERED: SODIUM BICARBONATE 8.4% INJ 50 MEQ/50 ML DISP.SYRIN ONE (06:43)
[2017-11-06] MEDS ORDERED: CEFEPIME 2 GM/D5W RTU 2 GM/50 ML RTUPB IV SCH (07:00)
[2017-11-06] MEDS ORDERED: EPINEPHRINE INJ 1 MG/10 ML DISP.SYRIN ONE ×3 (07:17→07:29)
--- NOTE | 2017-11-06 08:34 | Progress Note ---
Provider Note Provider Note: Jack, 46 year old male was admitted 1 day ago secondary to worsening weakness and fatigue status post chemotherapy. Patient was given Ativan 2mg IV x 1 along with morphine 2mg IV x 1 earlier in evening. I was called to the room to evaluate patient, who was resting on room air tachypneic. Patients oxygen saturation was maintained at this time. Patient was ordered to be given lovenox 1mg/kg at this time along with metoprolol 5mg IV x 1. With suspicion for a PE, CTA was ordered. Upon returning from CT patient continued to remain tachypneic upon my re-evaluation of patient. was present at bedside who, with consent of the patient, advised us to lift his DNI status and to do whatever was necessary to stabilize patient. Decision was made to intubate patient, and call was placed to the international accountant head mechanic who was able to successfully intubate patient. After intubation, patients lost his pulse and a code blue was initiated with CPR. Patient was given 5 doses of epi and 2 doses of bicarb while in room 322. With return of pulse after 5th dose of epi patient was rushed to the ICU at which point CPR was re-initiated secondary to PEA. 5 more doses of epi were given while in ICU, along with 2 doses of bicarb. With no return of pulse after approximately 1 hour of coding patient, decision was made to call the code. Time of noted to be 740am. was present in waiting room and made aware of patients status along the way as well as upon conclusion of the code. Oncologist present with family as well who was planning on discussing hospice cares with patient and family this AM given the terminal status of his stage 4 sarcoma.
--- NOTE | 2017-11-06 08:53 | PDOC CONSULTATION ---
Consultation Consult Date: 11/06/17 Attending physician:: ROBERT VALDES Consult reason:: Asked by hospitalist team to see patient actively dying with history of stage IV sarcoma History of Present Illness Admission Date/PCP: 11/05/17 19:29 KOLE DICKINSON MD Patient complains of: Weakness, dehydration History of Present Illness: ALLIE ISLAS JR is a 46 year old male with history of stage IV sarcoma, has been through multiple lines of therapy including several clinical trials, unfortunately recently with progressive disease, and the last week he became more dehydrated we tried outpatient hydration, ultimately his called noting that he was unable to get out of bed, we instructed her to take him to the ED, once in the ED was found to be severely dehydrated and anemic, hypotensive and tachycardic, we gave him broad-spectrum antibiotics as well as fluid hydration. Initially improved but unfortunately then had acute respiratory distress, became hypoxic, a CODE BLUE was called, and he was intubated, and subsequently coded for some time. Ultimately, it was felt to be futile and time of was called. I was there with the family for quite some time to discuss why this happened and the next steps of care, I was there for comfort and discussion. We spent greater than 70 minutes in discussion and coordination of care. 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 Denies: Asthma, Bronchitis, Chronic Obstructive Pulmonary Disease (COPD), Pneumonia EENT Medical History: Reports: Other - Sinusitis - untreated. Neurological Medical History: Denies: Seizures Musculoskeltal Medical History: Denies: Arthritis Hematology: Reports: Anemia - HX of borderline, no longer , Other - Sinusitis - untreated. Past Surgical History Past Surgical History: Reports: Other - Sarcoma removal from back, port placement right chest wall Social History Information Source: Patient Lives with: Family Smoking Status: Never Smoker Drugs: None - Advance Directive Resuscitation Status: Do Not Intubate Family History Family History: None Parental Family History Reviewed: Yes Children Family History Reviewed: Yes Sibling(s) Family History Reviewed.: Yes Medication/Allergy Home Medications: Aspirin [Ecotrin] 81 mg PO DAILY 03/03/16 Lorazepam [Ativan 1 mg Tablet] 1 mg PO Q12HP PRN 11/05/17 Oxycodone HCl [Oxy-Ir 5 mg Tablet] 5 mg PO Q12HP PRN 11/05/17 Oxycodone HCl [Oxycontin] 20 mg PO Q12HP PRN 11/05/17 Allergies/Adverse Reactions: No Known Allergies Allergy (Unverified 11/05/16 11:39) Review of Systems ROS unobtainable: Due to endotracheal tube Physical Exam Vital Signs: Temp Pulse Resp BP Pulse Ox 98.7 F 149 H 26 H 130/75 H 95 11/06/17 01:25 11/06/17 02:00 11/06/17 01:25 11/06/17 01:25 11/06/17 01:25 Intake & Output 11/05/17 11/06/17 11/07/17 06:59 06:59 06:59 Intake Total 600 Balance 600 Weight 106.3 kg Additional comments: Not performed as patient actively being coded Results Laboratory Results: 11/06/17 02:00 11/06/17 03:45 11/05/17 11/05/17 11/06/17 20:30 23:30 02:00 WBC 20.2 H RBC 3.23 L Hgb 9.1 L Hct 27.3 L MCV 85 MCH 28.1 MCHC 33.1 RDW 19.6 H Plt Count 181 Seg Neutrophils % Not Reportable Lymphocytes % Not Reportable Monocytes % Not Reportable Eosinophils % Not Reportable Basophils % Not Reportable Absolute Neutrophils Not Reportable Absolute Lymphocytes Not Reportable Absolute Monocytes Not Reportable Absolute Eosinophils Not Reportable Absolute Basophils Not Reportable Sodium Potassium Chloride Carbon Dioxide Anion Gap BUN Creatinine Est GFR ( Amer) Est GFR (Non-Af Amer) Glucose Lactic Acid 1.7 Calcium Phosphorus Magnesium Total Bilirubin AST ALT Alkaline Phosphatase Total Protein Albumin TSH Urine Color SHERRY Urine Appearance TURBID Urine pH 5.0 Ur Specific [place] 1.028 Urine Protein 100 H Urine Glucose (UA) 50 H Urine Ketones NEGATIVE Urine Blood NEGATIVE Urine Nitrite NEGATIVE Ur Leukocyte Esterase NEGATIVE Urine WBC (Auto) 9 Urine RBC (Auto) 3 11/06/17 11/06/17 11/06/17 02:00 02:00 03:45 WBC RBC Hgb Hct MCV MCH MCHC RDW Plt Count Seg Neutrophils % Lymphocytes % Monocytes % Eosinophils % Basophils % Absolute Neutrophils Absolute Lymphocytes Absolute Monocytes Absolute Eosinophils Absolute Basophils Sodium 134.9 L 133.8 L Potassium 4.3 4.5 Chloride 100 100 Carbon Dioxide 27 28 Anion Gap 8 6 BUN 19 20 Creatinine 0.90 1.03 Est GFR ( Amer) > 60 > 60 Est GFR (Non-Af Amer) > 60 > 60 Glucose 128 H 129 H Lactic Acid Calcium 7.8 L 7.9 L Phosphorus 3.7 Magnesium 2.1 Total Bilirubin 0.9 AST 88 H ALT 45 Alkaline Phosphatase 112 Total Protein 5.0 L Albumin 2.1 L TSH 4.27 Urine Color Urine Appearance Urine pH Ur Specific [place] Urine Protein Urine Glucose (UA) Urine Ketones Urine Blood Urine Nitrite Ur Leukocyte Esterase Urine WBC (Auto) Urine RBC (Auto) 11/06/17 03:45 NT-Pro-B Natriuret Pep 1700 H Impressions: Chest X-Ray 11/05/17 16:31 IMPRESSION: Right pulmonary masses. Opacification the left lung. Possible large left lung mass. Possible consolidation. Cannot exclude left pleural effusion. Chest/Abdomen CTA 11/06/17 00:00 IMPRESSION: 1. No pulmonary embolus identified. 2. Redemonstrated bilateral lung masses representing parenchymal metastatic disease, the largest in the left lower lobe measuring at least 11.3 cm in greatest dimension. 3. Small bilateral pleural effusions, right greater than left. These are slightly increased from the comparison study. 4. Interval development of confluent left basilar consolidation and right lower lung and left upper lung groundglass opacities. These could represent postobstructive pneumonia. 5. Filling defect in the left atrium may represent flow-related artifact or may represent invasion of the left atrium by tumor thrombus related to large adjacent left lung mass. 6. Hepatic steatosis. This exam was performed according to our departmental dose-optimization program, which includes automated exposure control, adjustment of the mA and/or kV according to patient size and/or use of iterative reconstruction technique. Assessment & Plan - Diagnosis (1) Metastatic sarcoma to lung Qualifiers: Laterality: unspecified laterality Qualified Code(s): C78.00 - Secondary malignant neoplasm of unspecified lung; C49.9 - Malignant neoplasm of connective and soft tissue, unspecified; C49.9 - Malignant neoplasm of connective and soft tissue, unspecified; C49.9 - Malignant neoplasm of connective and soft tissue, unspecified; C49.9 - Malignant neoplasm of connective and soft tissue, unspecified Is this a current diagnosis for this admission?: Yes Plan: Had long discussion with family ultimately family also agreed with discontinuing code, we had a long discussion, jig and fixture maker services were made available, family was at bedside to say their last goodbyes. We will be available for support through our clinic as well. - Time Time Spent: Greater than 70 Minutes
--- NOTE | 2017-11-06 08:57 | EKG REPORT ---
SEVERITY:- BORDERLINE ECG - SINUS TACHYCARDIA LOW VOLTAGE IN FRONTAL LEADS BORDERLINE T ABNORMALITIES, INFERIOR LEADS : Confirmed by: Graeme Marc 06-Nov-2017 08:56:53
[2017-11-06] MEDS ORDERED: LORATADINE 10 MG TABLET PO SCH (10:00)
[2017-11-06] MEDS ORDERED: ENOXAPARIN SODIUM INJ 40 MG/0.4 ML DISP.SYRIN SUBCUT SCH (10:00)
[2017-11-06] MEDS ORDERED: ASPIRIN 81 MG TABLET, ENT COATED PO SCH (10:00)
[2017-11-06] MEDS ORDERED: ENOXAPARIN SODIUM INJ 100 MG/1 ML DISP.SYRIN SUBCUT SCH (10:00)
--- NOTE | 2017-11-06 15:09 | Death Summary ---
Summary Date : 11/06/17 Time of :: 07:40 Autopsy: No Resuscitation Status: Full Code Primary Care Provider: Pavel Boyd MD - Final Diagnosis (1) Dehydration Is this a current diagnosis for this admission?: Yes (2) Leukocytosis Is this a current diagnosis for this admission?: Yes (3) Weakness Is this a current diagnosis for this admission?: Yes (4) Unable to walk Is this a current diagnosis for this admission?: Yes (5) Metastatic sarcoma to lung Is this a current diagnosis for this admission?: Yes (6) Sinusitis Is this a current diagnosis for this admission?: Yes Hospital Course:: The patient was admitted to the floor on telemetry due to his tachycardia which was felt to be due to volume depletion. The patient was also transfused with one unit PRBC's in the ED for a hemoglobin 8.5. In discussing the patient with Dr. Hercules I learned that despite the transfusion and IV fluids the patient continued to be increasingly tachycardic. He also became hypoxemic. CTA of the chest was obtained and ruled out PE. it was thought that the patient was volume overloaded and IV fluids were stopped and he was given lasix. The patient's respiratory status decompensated rapidly. When I admitted the patient he and his agreed that he wished to be a " Do Not Intubate", however, as his respiratory situation worsened the patients's rescinded the "Do Not Intubate". Anesthesia was called to intubate the patient. After intubation the pulse was lost. I arrived at the code immediately after learning of it, about 7: 20 am. I assumed lead of the code and called Dr. Boyd who came directly to the hospital and spoke to the family. At 7:40 after multiple rounds of the ACLS protocol, we still were not able to obtain a pulse. At this time the time of was called at 7:40 am.
== END 2017-11-06 07:39 | disposition left against medical advice (07) | DRG 641 ==
LOC: ER 15:45 → EH 19:29 → 3W 23:44 → ICU 11-06 06:59
PROVIDERS: ADMIT Family Medicine; ATTEND Family Medicine
PROC: 30233N1 Transfusion of Nonautologous Red Blood Cells into Peripheral Vein, Percutaneous Approach (ICD-10-PCS; principal; 2017-11-05)
PROC: 0BH17EZ Insertion of Endotracheal Airway into Trachea, Via Natural or Artificial Opening (ICD-10-PCS; 2017-11-06)
DX: E86.0 Dehydration (principal); C78.00 Secondary malignant neoplasm of unspecified lung; C49.9 Malignant neoplasm of connective and soft tissue, unspecified; D64.9 Anemia, unspecified; R06.03 Acute respiratory distress; D72.829 Elevated white blood cell count, unspecified; I95.9 Hypotension, unspecified; I10 Essential (primary) hypertension; J01.90 Acute sinusitis, unspecified; R00.0 Tachycardia, unspecified; R09.02 Hypoxemia; E87.70 Fluid overload, unspecified; Z79.899 Other long term (current) drug therapy
CPT/HCPCS: 31500; 36415; 36430; 71045; 71275; 80048; 80053; 81001; 82803; 83605; 83735; 83880; 84100; 84443; 85025; 85379; 86850; 86900; 86901; 86920; 87040; 87077; 87186; 92950; 93005; 93010; 96361; 96365; 96375; 99285; J0171; J0692; J1650; J1940; J2060; J2270; J2405; J3490; J7120; P9016